=== PATIENT | female | born 1965 | race Caucasian/White ===

== ENCOUNTER 2016-09-02 15:56 | Observation (INO) | payer OTHER ==
[2016-09-02 17:13] LABS: MANUAL DIFF NEEDED? NO
[2016-09-02 17:26] LABS: BASO% 0.5 % (0.0-0.8); EOS# 0.05 X1000 (0.0-0.7); EOS% 0.6 % (0.0-10.0); HEMOGLOBIN 13.1 g/dL (12.0-16.0); LYMPH# 1.25 X1000 (1.2-3.4); LYMPH% 14.6 % (20.5-51.1); MCH 30.9 PG (27-31); MCV 96.7 FL (81-99); MONO# 0.26 X1000 (0.11-0.59); MPV 11.6 FL (7.4-10.4); NEUT% 81.3 % (42.2-75.2); PLT 298 X1000 (130-400); RBC 4.24 XMIL (4.2-5.4)
[2016-09-02 17:51] LABS: ALBUMIN 3.9 g/dL (3.5-5.0); POTASSIUM 4.2 mmol/L (3.5-5.1); TOTAL BILIRUBIN 0.25 mg/dL (0.20-1.00); TOTAL PROTEIN 7.8 g/dL (6.3-8.3)
[2016-09-02] MEDS ORDERED: ZOFRAN IV ONE (19:34)
[2016-09-02] MEDS ORDERED: NS 1,000 ML IV ONE (19:34)
[2016-09-02] MEDS ORDERED: MORPHINE IV ONE ×2 (19:35→22:43)
--- NOTE | 2016-09-02 19:55 | PROVIDER DOCUMENTATION ---
HPI-Abdominal Pain/GI Problem - General Chief Complaint: N/V/D Stated Complaint: GENERAL Time Seen by Provider: 09/02/16 19:25 Source: patient Allergies/Adverse Reactions: Patient Allergies Allergy/AdvReac Type Severity Reaction Status Date / Time gabapentin [From Neurontin] AdvReac DIZZINESS Verified 09/02/16 20:35 pregabalin [From Lyrica] AdvReac DIZZINESS Verified 09/02/16 20:35 capsules AdvReac VOMITING Uncoded 09/02/16 20:35 Home Medications: Alprazolam [Xanax] 1 tab PO PRN PRN 03/13/16 Atorvastatin Calcium 1 tab PO DAILY 03/13/16 Cinacalcet HCl [Sensipar] 90 mg PO DAILY 03/13/16 Hydrocodone/Acetaminophen [[place] 10-325 Tablet] 1 each PO Q4H PRN PRN 03/13/16 Insulin Aspart [Novolog] 03/13/16 Insulin Detemir [Levemir] 11 units SQ HS 03/13/16 Ondansetron HCl [Zofran] 1 tab SL Q8H PRN PRN 03/13/16 Sevelamer Carbonate [Renvela] 1 packet PO DAILY 03/13/16 Carvedilol [Coreg] 1 each PO BID 09/02/16 Doxepin [Sinequan] 25 mg PO QHS 09/02/16 Hydroxyzine Pamoate 25 mg PO PRN PRN 09/02/16 Isosorbide Mononitrate [Isosorbide Mononitrate ER] 30 mg PO DAILY 09/02/16 Methocarbamol [Robaxin-750] 750 mg PO PRN PRN 09/02/16 Nitroglycerin [Nitrostat] 0.4 mg SL DIRECTED 09/02/16 Olanzapine [Olanzapine Odt] 5 mg SL DAILY 09/02/16 Pantoprazole [Protonix] 40 mg PO DAILY 09/02/16 Sucralfate [Carafate] 1 gm PO DIRECTED 09/02/16 Tizanidine HCl 4 mg PO PRN PRN 09/02/16 Venlafaxine [Effexor] 1 each PO DAILY 09/02/16 Venlafaxine [Effexor] 37.5 mg PO DAILY 09/02/16 - History of Present Illness-ABD Nature of Presenting Problems: 50 year old F presents to the ED with a cc of nausea, vomiting, and diarrhea with an onset of this morning. Pt states that she hd one large bowel movement this morning with bright red blood but since has had x6 diarrheal episodes. PT also c/o minimal ABD cramping. Pt is a dialysis pt. Abdominal Pain Onset Location: reports: generalized abdomen Pain Radiation: reports: no radiation Quality of Pain: reports: cramping Severity in ED: reports: mild Onset/Duration: reports: this morning Timing: reports: still present Modifying Factors: improves with: nothing Associated Symptoms: reports: diarrhea, nausea, vomiting Bruising or Bleeding Gums?: No Similar Symptoms Previously?: No Recently seen or treated by another doctor?: No Review of Systems - Adult - REVIEW OF SYSTEMS - ADULT Constitutional: denies: chills, fever Eyes: reports: no symptoms reported Ears, Nose, Mouth & Throat: denies: ear pain, throat pain Cardiovascular: denies: chest pain, palpitations Respiratory: denies: cough, shortness of breath Gastrointestinal: reports: abdominal pain, diarrhea, nausea, vomiting Genitourinary: denies: dysuria, hematuria Musculoskeletal: reports: no symptoms reported Integumentary: denies: skin sores/ulcer, skin thickening Neurological: reports: no symptoms reported Psychiatric: reports: no symptoms reported Endocrine: reports: no symptoms reported Hematologic/Lymphatic: reports: no symptoms reported Allergic/Immunologic: reports: no symptoms reported All Other Systems: Reviewed and Negative Past History - Adult - PAST MEDICAL HISTORY-ADULT Review of Records: reports: Nursing Assessment Review, Medications Reviewed Major Childhood Illnesses: reports: denies history Cardiovascular: reports: HTN Respiratory: reports: sleep apnea Genitourinary: reports: dialysis, ESRD Neurological: reports: CVA Endocrine/Immune: reports: Diabetes - PRIOR SURGERIES/PROCEDURES Surgical/Procedure History: reports: cholecystectomy, BTL, tonsillectomy - IMMUNIZATION STATUS Childhood Immunizations: See Nurse Assessment Flu Vaccine: See Nurse Assessment - FAMILY HISTORY Family History: reviewed, not pertinent - SOCIAL HISTORY Smoking: non-smoker Substance Use: none/never Alcohol Use Frequency: never Physical Exam-General - PHYSICAL EXAM-ADULT Initial Vital Signs Reviewed: Yes - CONSTITUTIONAL General Appearance: appears well, alert, no apparent distress - RESPIRATORY Respiratory: chest non-tender, lungs clear, normal breath sounds - CARDIOVASCULAR Cardiovascular: normal peripheral pulses, regular rate, rhythm, no edema - GASTROINTESTINAL (ABDOMEN) Abdominal Exam: normal bowel sounds, non tender, soft - SKIN Integumentary: normal color, normal turgor, warm/dry - PSYCHIATRIC Psych/Mental Status: normal mood/affect, normal thought content, normal thought process, oriented x 3 Progress - PLAN OF CARE/RESULTS Progress/Plan/Lab Results: plan of care: labs, medications, fluids Orders Category Date Time Status Saline Loc DIRECTED Care 09/02/16 16:46 Completed NPO Diet 09/02/16 16:46 Active AMYLASE [CHEM] Stat Lab 09/02/16 17:00 Completed CBC WITH ELECTRONIC DIFF [HEME] Stat Lab 09/02/16 17:00 Completed COMPREHENSIVE METABOLIC PANEL [CHEM] Stat Lab 09/02/16 17:00 Completed LIPASE [CHEM] Stat Lab 09/02/16 17:00 Completed 0.9% Sodium Chloride Inj [Ns] 1,000 ml Med 09/02/16 19:34 Discontinued IV 999 mls/hr Metoclopramide [Reglan] Med 09/02/16 23:40 Discontinued 10 mg IV NOW ONE Morphine Med 09/02/16 19:35 Discontinued 4 mg IV NOW ONE Morphine Med 09/02/16 22:43 Discontinued 4 mg IV NOW ONE Ondansetron [Zofran] Med 09/02/16 19:34 Discontinued 8 mg IV NOW ONE Promethazine [Phenergan] Med 09/02/16 22:42 Discontinued 25 mg IV NOW ONE Sodium Chloride 0.9% Med 09/02/16 22:42 Discontinued 10 ml INJ NOW ONE Laboratory Tests 09/02/16 09/02/16 17:00 17:00 WBC 8.54 RBC 4.24 Hgb 13.1 Hct 41.0 MCV 96.7 MCH 30.9 MCHC 32.0 L RDW Std Deviation 13.9 Plt Count 298 MPV 11.6 H Immature Gran % (Auto) 0.0 Neut % (Auto) 81.3 H Lymph % (Auto) 14.6 L Lyon % (Auto) 3.0 Eos % (Auto) 0.6 Baso % (Auto) 0.5 Immature Gran # (Auto) 0.00 Neut # (Auto) 6.94 H Lymph # (Auto) 1.25 Lyon # (Auto) 0.26 Eos # (Auto) 0.05 Baso # (Auto) 0.04 Sodium 127 L Potassium 4.2 Chloride 84 L Carbon Dioxide 24 L Anion Gap 19 BUN 22 Creatinine 6.2 H Estimated GFR/1.73 m2 7 BUN/Creatinine Ratio 4 Glucose 184 H Calculated Osmolality 263 Calcium 11.0 H Total Bilirubin 0.25 AST 13 ALT 6 L Alkaline Phosphatase 138 H Total Protein 7.8 Albumin 3.9 Globulin 3.9 Albumin/Globulin Ratio 1.0 Amylase 82 Lipase 13 Vital Signs - 24 hr 09/02/16 09/02/16 09/02/16 16:41 19:16 21:25 Temperature 97.9 F 99.3 F Pulse Rate 94 H 97 H 93 H Respiratory 20 20 20 Rate Blood Pressure 156/101 172/97 160/87 O2 Sat by Pulse 100 100 98 Oximetry Pt given results. Pt will be admitted to the hospitalist group. PT in agreement with plan of care. - REASSESSMENT Reassessment #1 Time Reassessed: 23:35 (PT still vomiting. More medications will be ordered) Status: unchanged Reassessment #2 Time Reassessed: 00:10 (PT still vomiting. Dr. Anna will be called for admission.) - CONSULTS/PCP/HOSPITALIST Notification #1 *Consult/PCP/Hospitalist*: Dr. Anna Time Discussed: 00:16 Departure - Departure Time of Disposition Order: 00:20 DIAGNOSIS: Intractable vomiting Qualifiers: Vomiting type: unspecified Nausea presence: with nausea Qualified Code(s): R11.2 - Nausea with vomiting, unspecified Disposition: ADMITTED INPATIENT 09 Certified Medical Emergency: Emergent Condition: Stable Attestation - Scribe Verification/Attestation Scribe:: Rissa Hinds Acting as Scribe for:: Jimbo Thomas Scribe documention review:: This chart was documented by a scribe and accurately reflects the service the provider performed and the decisions made by the provider. Physician Attestation - Physician Attestation I, the provider, attest to the following statement:: Jimbo Thomas Physician documentation Attestation:: This documentation recorded by the scribe accurately reflects the service I personally performed and the decisions made by me.
[2016-09-02] MEDS ORDERED: SODIUM CHLORIDE 0.9% INJ ONE (22:42)
[2016-09-02] MEDS ORDERED: PHENERGAN IV ONE (22:42)
[2016-09-02] MEDS ORDERED: REGLAN IV ONE (23:40)
[2016-09-03] MEDS ORDERED: SODIUM CHLORIDE 0.9% INJ PRN (02:08)
[2016-09-03] MEDS ORDERED: PHENERGAN IV PRN (02:08)
[2016-09-03] MEDS ORDERED: ZOFRAN IV PRN (02:08)
[2016-09-03] MEDS ORDERED: NS 1,000 ML IV SCH (02:08)
[2016-09-03] MEDS: HEPARIN SUBQ SCH ×3 (03:07→21:15)
[2016-09-03] MEDS: PROTONIX IV SCH (03:07)
[2016-09-03] MEDS: SODIUM CHLORIDE 0.9% INJ SCH (03:07)
--- NOTE | 2016-09-03 06:05 | HISTORY AND PHYSICAL ---
PRIMARY CARE PROVIDER: Dr. Diana in [place] CLOTH COVERED HELMET PULLER: Dr. Doll RETAIL MERCHANDISING COORDINATOR: in [place]. CHIEF COMPLAINT: Nausea, vomiting, diarrhea. HISTORY OF PRESENT ILLNESS: This is a 50-year-old female, who has a history of end-stage renal disease with Thursday, Thursday, Thursday dialysis. She has had multiple myocardial infarctions. She has a defibrillator which has been changed out 5 times per the patient. 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 The patient also has diabetes mellitus type 2 that is now insulin dependent and because of her or end-stage renal disease, was polycystic kidney disease. At any rate, she came into the emergency room today after starting to have nausea, vomiting and diarrhea this morning. She states that she has had roughly 16 bowel movements and 30 episodes of emesis throughout the day. She stated when she very first began having symptoms that her stool was hard and she did notice some blood with the 1st bowel movement related to hemorrhoids but has not otherwise noted any bleeding in her emesis or stool. She denies chest pain, dizziness, lethargy, fever, chills, body aches. She states that no members of her family have been sick with similar illness. After being given repeated doses of and Phenergan, Zofran and a dose of Reglan in the emergency room, the patient was still having nausea and vomiting. She will be admitted for further evaluation and treatment. PAST MEDICAL HISTORY: See HPI. PREVIOUS SURGICAL HISTORY: 1. Defibrillator placement and replacement x5. 2. Cholecystectomy. 3. BTL. 4. Tonsillectomy. 5. Left arm fistula. SOCIAL HISTORY: Lives at home with her family. Denies tobacco, alcohol or illicit drug use or abuse. FAMILY HISTORY: Positive for coronary artery disease, Crohn's disease, diabetes mellitus and polycystic kidney disease in first-degree relatives. ALLERGIES: Neurontin and Lyrica. HOME MEDICATIONS: List has not been reconciled in the computer. Nursing is working on reconciling. Home medications will be restarted when appropriate. REVIEW OF SYSTEMS: Fourteen point review of systems conducted with the patient. Pertinent positives listed above in the HPI. All other systems are negative. PHYSICAL EXAMINATION: VITAL SIGNS: Temperature 99.3 degrees, pulse 93, respirations 20, blood pressure 160/87, oxygen saturation 98% on room air. GENERAL: Very pleasant, 50-year-old female, lying in the ER stretcher in no acute distress at this time. Not presently retching or vomiting. Answers all questions appropriately. HEENT: Head is atraumatic, normocephalic. Pupils equal, round, reactive to light. Extraocular eye movement intact. Sclerae is anicteric. Conjunctivae is pink. Oral mucosa is dry. NECK: Supple. No JVD. No thyromegaly. Trachea is midline. CARDIAC: Regular rate and rhythm. S1-S2 appreciated. No murmurs, gallops, rubs. CHEST: Symmetrical rise and fall with respirations. Left-sided pacemaker noted with recent surgical incision noted, healing with no signs or symptoms of infection. LUNGS: Clear to auscultation bilaterally. No rhonchi, wheezes or rales. ABDOMEN: Protuberant, soft, nondistended, nontender. Bowel sounds present in all 4 quadrants. Normoactive. No pulsatile mass. No organomegaly. EXTREMITIES: Bilateral hammertoe noted. No clubbing, cyanosis or edema. Two plus pedal pulses. GENITOURINARY: No bladder distention noted. Otherwise deferred. MUSCULOSKELETAL: Left upper extremity restricted movement related to recently having pacemaker implantation; however, she was noted as having decreased range of motion from previous CVA and weakness at 2 to 3/5 strength. Right upper extremity full range of motion, 5/5 strength bilateral lower extremities with range of motion within normal limits 3/5 strength. On bilateral upper extremities, calciphylactic lesions noted. NEUROLOGICAL: Alert and oriented x3. Cranial nerves 2-12 appear to be grossly intact. DIAGNOSTIC DATA: Flat and upright x-ray of abdomen is pending. LABORATORY DATA: CBC within normal limits. Sodium 137, potassium 4.2, chloride 84, carbon dioxide 24, BUN 22, creatinine 6.2, glucose 184. ASSESSMENT: 1. Intractable nausea and vomiting possibly related to gastroparesis or gastroenteritis. 2. End-stage renal disease with Thursday, Thursday, Thursday hemodialysis. 3. Diabetes mellitus type 2, now insulin dependent with hyperglycemia. 4. Polycystic kidney disease. 5. Hypertension. 6. Hyponatremia likely secondary to fluid volume depletion. PLAN: Admit patient to the medical floor. Consult Dr. Gil for hemodialysis in a.m. as she would normally have this. Heparin 5000 units subcutaneously q.12 hours. Recheck laboratory data in a.m. fingerstick blood sugar q.4 hours with sliding scale coverage. Nursing to reconcile home medications. We will restart when appropriate. Protonix 40 mg 1 time dose. Alternate Zofran and Phenergan for nausea and vomiting. Continue normal saline at 100 mL an hour. The patient received a 1 L bolus. We will give 1 additional L. Aware that she will have dialysis tomorrow. Will hold patient NPO with ice chips and sugar free popsicles at this time. Further recommendations per patient clinical course. Dictated by AICHA Caballero for Segundo Anna MD
[2016-09-03] MEDS: HUMALOG SUBQ SCH ×3 (06:47→18:50)
[2016-09-03] MEDS ORDERED: NS 2,000 ML MISC PRN (08:49)
[2016-09-03] MEDS ORDERED: TIGHT: 0.2 ML/HR MISC PRN (08:49)
[2016-09-03] MEDS ORDERED: HEPARIN IV PRN (08:49)
[2016-09-03] MEDS ORDERED: NS 2,000 ML ONE ×3 (12:06→15:52)
[2016-09-03] MEDS ORDERED: HEPARIN ONE ×3 (12:06→15:52)
--- NOTE | 2016-09-03 12:06 | PROGRESS NOTE ---
DATE: 09/03/2016 Today Ms. Gross referred to be doing just slightly better. She was admitted because of intractable nausea and vomiting. This morning, she says since 7 a a.m. she has not had any more vomiting. Briefly, Ms. Gross is a 50-year-old female, who said she went for dialysis, regular schedule on Thursday and had some vomiting which was not new because she normally vomits during dialysis but then subsequently at home, she started feeling just low, weaker. She had an episode of some fever and chills and then yesterday, she woke up and just started throwing up like crazy and not being able to help herself. She also has multiple episodes of diarrhea with the nausea and vomiting so she came into the emergency department where she was evaluated and admitted for further management. OBJECTIVELY: This morning, her vitals, blood pressure is 128/79, pulse of 78, respirations 16, temperature is 97.7 degrees.General Exam: Ms. Gross is a 57-year-old female. She is in bed. She did not seem to be in any remarkable pain. Mucosa is pink and moist. Anicteric. Acyanotic. Neck: Supple. Chest: Good air entry bilaterally. No crepitations. Cardiovascular: Regular rate and rhythm. There is a generator pocket on the left anterior chest wall. Abdomen: Soft, mildly tender all over. Bowel sounds are present. Extremities: No pedal edema. RECEIVING SPECIALIST: Patient is alert and oriented x4. There is no focal neurological deficit. Patient has good insight and judgment. LABORATORY DATA: WBC is 8.54, hemoglobin is 13.1, platelet count of 298,000. Sodium is 127, potassium 4.2, chloride is 84, bicarb is 24, creatinine is 6.2. ASSESSMENT: 1. Intractable nausea and vomiting. This was the cause of patient being admitted. Unsure of the etiology. For now, the patient seems to be doing a little better. We will try her on clear liquids and see if she will be able to tolerate this. 2. Diarrhea, could be just gastroenteritis which seems to have self contained. We will however send stool for studies to make sure we do not miss any enteric bug that needs to be taken care of. 3. Endstage renal disease on hemodialysis Thursday, Thursday, Thursday. Today the patient is due for dialysis. Nephrology has already been consulted and we are pending their evaluation and recommendations. 4. Diabetes mellitus, insulin dependent. 5. Fever and chills at home. This could just all be related to the gastroenteritis. But it could also be as a result of a transient bacteremia from the GI or from dialysis related. We will do blood cultures. So far, patient's WBC is stable and has not had any temperature here in hospital and pulse is also under control. We will do the blood culture. I will hold off on antibiotics for now. 6. History of multiple heart attacks. With this nausea and vomiting in a patient who is end- stage and a female it could just be a defer manifestation of heart disease. I would therefore go ahead and do an EKG, follow the troponins to make sure it is not anything in the inferior leads or the diaphragmatic part of the heart that is being affected given the GI symptoms.
--- NOTE | 2016-09-03 14:54 | EKG Report ---
Test Performed on : 09/03/2016 11:33:57 AM Test Reason : cp Blood Pressure : / mmHG Vent. Rate : 080 BPM Atrial Rate : 080 BPM P-R Int : 164 ms QRS Dur : 104 ms QT Int : 408 ms P-R-T Axes : 068 -50 150 degrees QTc Int : 470 ms Normal sinus rhythm. Left anterior fascicular block Abnormal ECG When compared with ECG of 13-MAR-2016 07:00, Nonspecific T wave abnormality now evident in Inferior leads Nonspecific ST and T wave abnormality T wave amplitude has decreased in V3-V4-V5 Confirmed by Salbador Romo DO ([id number]) on 09/03/2016 7:15:12 PM
--- NOTE | 2016-09-03 15:13 | Diag Imaging Result Document ---
PROCEDURE NAME: CT ABD/PELVIS ORAL CONTR ONLY - 09/03/2016 CT ABDOMEN AND PELVIS WITH ORAL CONTRAST ONLY: COMPARISON: None available. FINDINGS: Review of the lower chest reveals dense calcification involving the septum of the heart and ventricular wall near the apex. A left ventricular aneurysm at the apex of the heart should be considered. There are innumerable renal cysts bilaterally with peripheral calcifications. Some appear to contain blood products. This is consistent with autosomal dominant polycystic kidney disease. There has been a previous cholecystectomy. There are a few tiny hepatic hypodensity that are too small to characterize and are nonspecific, but probably represent tiny cysts. The liver is unremarkable, otherwise. The appendix is normal. There is no evidence of hydronephrosis. The urinary bladder is largely nondistended and is unremarkable, otherwise. There are perhaps a few colonic diverticula at the sigmoid colon, but there is no evidence of diverticulitis. There is patchy aortic atherosclerotic calcification with no evidence of aneurysm. The left renal artery is heavily calcified at its origin. There is milder calcification at the origin of the celiac trunk and superior mesenteric artery. No focal inflammatory changes, free abdominal gas, or free fluid is appreciated, otherwise. There is a large nonspecific cyst involving the labia majora on the left measuring approximately 3.6 x 2.1 cm axially. IMPRESSION: 1. Findings compatible with polycystic kidney disease. 2. Cardiac septal and ventricular wall calcification with slight prominence at the apex of the left ventricle. This may represent a small ventricular aneurysm. 3. Incidental nonspecific labial cyst on the left. 4. Other incidental/nonacute findings detailed above.
[2016-09-03] MEDS ORDERED: XANAX ONE (16:54)
[2016-09-03] MEDS ORDERED: BENADRYL ONE (16:54)
[2016-09-03] MEDS: BENADRYL IV PRN (16:57)
[2016-09-03] MEDS: XANAX PO PRN ×2 (16:58→21:15)
[2016-09-03] MEDS ORDERED: ZOFRAN ONE (18:19)
--- NOTE | 2016-09-04 00:13 | CONSULTATION ---
DATE OF CONSULTATION: 09/03/2016 This is Lizette Mattson, nurse practitioner, dictating a consult for Dr. Berto Gil. REASON FOR ADMISSION: Nausea and vomiting with diarrhea for the last 3 to 4 days, worsening in the last 2. REASON FOR CONSULT: End-stage renal disease with assistance with medical management. PRIMARY CARE PHYSICIAN: Dr. Diana, in [place], with cane pusher Dr. Doll. She also dialyzes at a [facility] in [place]. HPI: Ms Gross is a 50-year-old white female, who had actually been seen by our service several years ago, last seen in 2014. At that time, patient had just come off hemodialysis. During that period of time in the last year and a half, she had become ill. She was seen over in [place] and started on hemodialysis at that time. She has an A/V fistula to the left upper arm. Subsequently, during these last several years, she has had multiple myocardial infarctions with an AICD defibrillator placed, which has been changed multiple times due to loose wires in the upper atrial wall. She also states that she has had sleep apnea and CVAs x2 with residual left arm decreased motion. Patient also stated that she has known polycystic kidney disease in the past. She came to the emergency room after having nausea and vomiting and diarrhea for 2 to 3 days. She states that she has had greater than 16 bowel movements and multiple episodes of emesis, some with hematochezia and some melanic stools. Her daughter had found her yesterday evening. Patient was severely weak. She was brought to [facility]'s Emergency Department for evaluation. She denied any chest pain. No increased work of breathing. No fever or chills. Positive for body aches, but she thinks this is secondary to having been sick with retching. Patient was given multiple doses of Phenergan and Zofran in the emergency department, and some Reglan. She is currently resting at this time. She has not thrown up since her admission, though she remains nauseated. She was subsequently admitted. She is currently being hydrated, and is in need for hemodialysis today per her routine dialysis prescription. PAST MEDICAL HISTORY: As mentioned, she has end-stage renal disease with hemodialysis on Thursday, Thursday, Thursday at the [facility] in [place]. She has history of CVA, [place], AICD defibrillator, polycystic kidney disease, hypertension. She is positive for hyperlipidemia, depression, anxiety, diabetes mellitus type 2, reflux, anemia secondary to chronic disease. SURGICAL HISTORY: Her most recent surgical history is defibrillator placement with replacement of wires x5, according to the patient, cholecystectomy, BTL, tonsillectomy, left arm fistula. SOCIAL HISTORY: She lives alone. Her family lives nearby. She denies tobacco , alcohol or illicit drug use. FAMILY HISTORY: Positive for coronary artery disease, Crohn's disease, diabetes mellitus, polycystic kidneys in 1st degree relatives. CURRENT ALLERGIES: Neurontin, Lyrica. HOME MEDICATIONS: She is on Coreg, isosorbide mononitrate, Tizanidine, Carafate , Effexor, Nitrostat, Protonix, Zofran, NovoLog, calcium acetate, atorvastatin, hydrocodone , Xanax, Sensipar, Renvela and Levemir. Patient states that she also receives multivitamin and IV iron at her clinic if needed. REVIEW OF SYSTEMS: review of systems x10 with pertinent positives listed above in the HPI. VITAL SIGNS: Temperature 98.5, blood pressure 116/66, heart rate 79, respirations are 16. She is on room air. Last recorded saturation 92%. She has had 13 in. She has had no void. She states that she does not urinate anymore with hemodialysis assist. LABS: Her sodium, upon admission rather, is 127, potassium 4.2, chloride is 84 , CO2 of 24, BUN 22, creatinine 6.2, glucose 184. Her anion gap is 19. Calcium 11. Albumin 3.9 , amylase 82, lipase 13. Her white count 8.54, hemoglobin 13.1, hematocrit 41, platelet count 298,000. PHYSICAL EXAMINATION: General: This is a 50-year-old white female. She is currently resting in bed. She is not in any acute distress. Skin: Warm and dry. HEENT: Normocephalic, atraumatic. Conjunctiva is pale. She has NICHOLAS. Mucous membranes moist. Neck: Supple. Trachea midline. No JVD. Cardiovascular: Regular rate and rhythm. No appreciable murmur or gallop noted. She is sinus rhythm on the monitor. Lungs: Clear to auscultation anteriorly. Equal excursion. Abdomen: Protuberant, soft, nontender. Positive bowel sounds. Genitourinary: Not inspected. Minimal void with dialysis assist. Extremities: Bilateral hammertoes are noted. Otherwise, no clubbing or cyanosis. Has 1+ edema. Neurological: Alert and oriented x3. ASSESSMENT AND PLAN: 1. End-stage renal disease. Patient is due for her routine dialysis treatment today. We will place her on a 2 K bath. She is to dialyze for 3.5 hours. We will attempt to obtain her records from her [facility], in regards with her machine settings, and attempt to pull patient to her dry weight. 2. Intractable nausea and vomiting. This has improved. Patient has gastroparesis or gastritis, which is currently being worked up. 3. Electrolytes. These are stable. The patient does have slight hyponatremia, which is possibly secondary to her fluid volume deficits. She also has hypercalcemia, secondary to her fluid volume deficit. 4. Hypertension. This is stable. 5. Acid-base balance. This remains stable. We will repeat these labs in the morning. I would like to thank you for allowing us to follow with this patient. Data reviewed, discussed with Raiza Mattson on 09/03/16. I agree with the above assessment and plan of care. rg Dictated by AICHA Clayton for Berto Gil MD [facility]
[2016-09-04] MEDS: HUMALOG SUBQ SCH ×3 (04:25→10:21)
[2016-09-04 06:02] LABS: MANUAL DIFF NEEDED? NO
[2016-09-04 06:38] LABS: BASO% 0.8 % (0.0-0.8); EOS# 0.18 X1000 (0.0-0.7); EOS% 3.7 % (0.0-10.0); HEMATOCRIT 34.8 % (37.0-47.0); HEMOGLOBIN 10.8 g/dL (12.0-16.0); IMM GRAN# 0.02 X1000 (0.0-0.04); IMM GRAN% 0.4 % (0.0-0.5); LYMPH# 1.66 X1000 (1.2-3.4); LYMPH% 34.2 % (20.5-51.1); MCH 30.9 PG (27-31); MCV 99.7 FL (81-99); MONO# 0.28 X1000 (0.11-0.59); MONO% 5.8 % (1.7-9.3); MPV 11.6 FL (7.4-10.4); NEUT% 55.1 % (42.2-75.2); PLT 214 X1000 (130-400); RBC 3.49 XMIL (4.2-5.4)
[2016-09-04 06:39] LABS: POTASSIUM 4.2 mmol/L (3.5-5.1)
[2016-09-04 07:36] VITALS: BP 118/80
[2016-09-04] MEDS ORDERED: XANAX PO PRN (08:06)
[2016-09-04] MEDS ORDERED: NITROGLYCERIN SL SCH (08:15)
[2016-09-04] MEDS ORDERED: CARAFATE PO SCH (08:15)
[2016-09-04] MEDS ORDERED: IMDUR PO SCH (09:00)
[2016-09-04] MEDS ORDERED: ZYPREXA ZYDIS SL SCH (09:00)
[2016-09-04] MEDS ORDERED: LIPITOR PO SCH (09:00)
[2016-09-04] MEDS ORDERED: SENSIPAR PO SCH (09:00)
[2016-09-04] MEDS ORDERED: COREG PO SCH (09:00)
[2016-09-04] MEDS ORDERED: EFFEXOR PO SCH (09:00)
[2016-09-04] MEDS: HEPARIN SUBQ SCH (10:08)
[2016-09-04] MEDS: PROTONIX IV SCH (10:08)
[2016-09-04] MEDS: SODIUM CHLORIDE 0.9% INJ SCH (10:08)
[2016-09-04] MEDS: BENADRYL IV PRN (10:58)
--- NOTE | 2016-09-05 10:36 | DISCHARGE SUMMARY ---
ADMISSION DATE: 09/03/2016 DISCHARGE DATE: 09/04/2016 CONSULTATIONS: Dr. Berto Gil PERTINENT PROCEDURES: Abdomen pelvis CT showed findings compatible with polycystic kidney disease. Cardiac septal and ventricle wall calcification with slight prominence of the apex of the left ventricle. Incidental nonspecific labial cyst on the left. DISCHARGE DIAGNOSES: 1. End-stage renal disease on hemodialysis. 2. Intractable nausea, vomiting, improved. 3. Electrolytes are stable. 4. Hypertension stable. Acid-base balance stable. 5. Polycystic kidney disease. 6. Diabetes mellitus type 2 insulin dependent. HOSPITAL COURSE: Ms. Gross is a 50-year-old female with a history of end-stage renal disease, on hemodialysis Thursday, Thursday, Thursday. She has had multiple myocardial infarctions. She has a defibrillator which has been changed out about 5 times per the patient. She is also known to have obstructive sleep apnea and two CVAs with residual left arm decreased range of motion and weakness. She also has diabetes mellitus type 2 insulin dependent and polycystic kidney disease. The patient came to the ED after having nausea, vomiting, and diarrhea. She stated she had a roughly about 16 bowel movements and 30 episodes of emesis throughout the day. She stated when she very first began having symptoms that her stool was hard and she did notice some blood in the 1st bowel movement related to hemorrhoids but otherwise no bleeding in stool or emesis. After given repeated doses of Phenergan, Zofran and Reglan in the ED the patient was still having persistent nausea and vomiting. She was admitted to the medical floor for intractable nausea, vomiting, possibly related to gastroparesis and/or gastroenteritis. Dr. Gil was consulted to continue her on her hemodialysis as normally scheduled and placed on antiemetics, alternating Zofran and Phenergan and IV fluids. She got a total of 2 L. She was held NPO with the exception of ice chips and sugar free popsicles. The patient's nausea and vomiting did improve. She did undergo her regular scheduled hemodialysis. Her electrolytes as well as acid-base balance remained stable. Dr. Escalona was assessed the patient and feels that she is appropriate for discharge home today. Also given her heart disease they did check an EKG as well as troponins negative for any SC. Patient was advanced to a clear liquid diet. She tolerated that well. She will advance as tolerated. VITAL SIGNS: Vital signs at time of discharge, temperature is 97.6 degrees, heart rate 86, respirations 16, blood pressure is 118/80, O2 is 100% on room air. DISCHARGE MEDICATIONS: 1. Xanax 1 tab p.o. p.r.n. 2. Zofran 1 tab sublingual q.8 hours p.r.n. 3. Senna 490 mg p.o. daily. 4. NovoLog 1 each subcu as directed. 5. Levemir 15 units at bedtime. 6. Renvela 1 packet p.o. as directed. 7. Tizanidine 4 mg p.o. p.r.n. for muscle spasm. 8. Coreg 1 each p.o. b.i.d. 9. Effexor 37.5 mg p.o. daily. 10. Isosorbide mononitrate 30 mg p.o. daily. 11. Nitrostat 0.4 mg sublingual as directed. 12. Olanzapine ODT 5 mg sublingual daily. 13. Protonix 40 mg p.o. daily. 14. Carafate 1 g p.o. as directed. 15. Lipitor 40 mg p.o. daily. DISPOSITION: The patient is being discharged home. FOLLOWUP: Her primary care physician is Dr. Diana in [place]. She will follow up with him in 7-10 days. Patient will need to keep her regular scheduled dialysis appointment with [facility]. Her instrument tester is Dr. Doll and she also has a watchmaking teacher in [place]. The patient can return to the ED for any worsening of symptoms. TIME SPENT AT DISCHARGE: Thirty minutes. Dictated by AICHA Kemp for Jere Escalona MD
== END 2016-09-04 12:59 | disposition home health service (06) ==
LOC: ED 15:56 → 4N 09-03 01:23 → INTOOBSV 09-03 01:23
PROVIDERS: ATTEND Internal Medicine
DX: R11.2 Nausea with vomiting, unspecified (principal); E87.1 Hypo-osmolality and hyponatremia; E83.51 Hypocalcemia; E11.65 Type 2 diabetes mellitus with hyperglycemia; N18.6 End stage renal disease; I12.0 Hypertensive chronic kidney disease with stage 5 chronic kidney disease or end stage renal disease; D63.0 Anemia in neoplastic disease; E11.22 Type 2 diabetes mellitus with diabetic chronic kidney disease; Q61.3 Polycystic kidney, unspecified; Z79.4 Long term (current) use of insulin; I25.2 Old myocardial infarction; G47.33 Obstructive sleep apnea (adult) (pediatric); R19.7 Diarrhea, unspecified; R10.84 Generalized abdominal pain; Z99.2 Dependence on renal dialysis; Z86.73 Personal history of transient ischemic attack (TIA), and cerebral infarction without residual deficits; Z95.810 Presence of automatic (implantable) cardiac defibrillator; K64.9 Unspecified hemorrhoids; R50.9 Fever, unspecified; F41.9 Anxiety disorder, unspecified; R60.0 Localized edema; Z79.899 Other long term (current) drug therapy; Z82.71 Family history of polycystic kidney; Z82.49 Family history of ischemic heart disease and other diseases of the circulatory system; Z83.3 Family history of diabetes mellitus
CPT/HCPCS: 36415; 74176; 80048; 80053; 82150; 82550; 82948; 83690; 84443; 84484; 85025; 87040; 93005; 93010; 96361; 96372; 96374; 96375; 96376; C9113; G0378; J1200; J1644; J1815; J2270; J2405; J2550; J2765; J7030; S0164